=== PATIENT | male | born 1935 ===

== ENCOUNTER 2023-01-16 07:42 | Inpatient (IN) | payer MEDICARE ==
[~2023-01-16] VITALS: Ht 172.7 cm; Wt 57.3 kg
[2023-01-16] MEDS ORDERED: INSU3INS9 SQ (08:14)
[2023-01-16] MEDS ORDERED: TAMS-3 PO (08:14)
[2023-01-16] MEDS ORDERED: FAMO10TA41 PO (08:14)
[2023-01-16] MEDS ORDERED: NA P133E RC (08:14)
[2023-01-16] MEDS ORDERED: DOCU100T2 PO (08:14)
[2023-01-16] MEDS ORDERED: LEVO500T90 PO (08:14)
[2023-01-16] MEDS ORDERED: LOSA25TA27 PO (08:14)
[2023-01-16] MEDS ORDERED: LEVE500T9 PO (08:14)
[2023-01-16] MEDS ORDERED: AMLO10TA4 PO (08:14)
[2023-01-16] MEDS ORDERED: DOCU-160 PO (08:14)
[2023-01-16] MEDS ORDERED: METO25TA6 PO (08:14)
[2023-01-16] MEDS ORDERED: MAG30ORA PO (08:14)
[2023-01-16] MEDS ORDERED: ACET325C7 PO (08:14)
[2023-01-16] MEDS ORDERED: INSU100V39 SQ (08:14)
--- NOTE | 2023-01-16 08:17 | NUR ---
Pt is in bed and in stable condition. Safety measures in place. Will continue to monitor.
--- NOTE | 2023-01-16 08:36 | NUR ---
Pt seen by MD for bedside eval. Safety measures in place. Will continue to monitor.
[2023-01-16 08:52] LABS: HEMATOCRIT 36.1 % (36.7-47.1); MEAN CORPUSCULAR HEMOGLOBIN 32.4 uug (23.8-33.4); MEAN CORPUSCULAR VOLUME 93.3 fL (73.0-96.2); PLATELET COUNT (AUTO) 246 K/uL (152-348)
[2023-01-16 08:57] LABS: CREATININE 1.2 mg/dL (0.6-1.3); POTASSIUM 3.3 mmol/L (3.5-5.1)
[2023-01-16 09:03] LABS: BILIRUBIN,TOTAL 0.5 mg/dL (0.2-1.0)
--- NOTE | 2023-01-16 09:33 | NUR ---
Dr Lee spoke to Dr Beverly re pt's Ct scan.
[2023-01-16] MEDS ORDERED: levETIRAcetam IV 1,000 MG in IV DEXTROSE 5% 100 ML IV ONE (09:45)
[2023-01-16] MEDS ORDERED: HALOPERIDOL LACTATE 5 MG/1 ML VIAL ONE (14:00)
[2023-01-16] MEDS ORDERED: HALOPERIDOL LACTATE 5 MG/1 ML VIAL IM PRN (14:15)
--- NOTE | 2023-01-16 14:15 | NUR ---
Gave report to Jayshree CARLOS).
--- NOTE | 2023-01-16 14:30 | NUR ---
Pt received from ER awake family member with pt, his son Gianfranco who states he doesn't know too much about pt's medical information and informed that Yancy Taylor Cruz pt's is the POA.Pt at times trying to get out of bed no follow direction. Family member has to leave informed Pt will be restrained for safety and fall prevention. Family member understood assisted pt with PO fluids and skin care done after any incontinence. HOB kept elevated at all times due to ICH Pt resting comfortable.
--- NOTE | 2023-01-16 14:48 | NUR ---
Pt transferred to 306 safely and in stable condition. All belongings are with pt. Jayshree (RN) is aware of pt's arrival. Gave paperwork to unit seretary.
[2023-01-16] MEDS ORDERED: ACETAMINOPHEN 325 MG TABLET PO PRN (15:00)
[2023-01-16] MEDS ORDERED: ONDANSETRON 4 MG/2 ML VIAL IV PRN (15:00)
[2023-01-16] MEDS ORDERED: DEXTROSE 50% 50 ML DISP.SYRIN IV PRN (15:00)
[2023-01-16] MEDS ORDERED: ZOLPIDEM 5 MG TABLET PO PRN (15:00)
[2023-01-16] MEDS ORDERED: DOCUSATE SODIUM 100 MG CAPSULE PO PRN (15:00)
[2023-01-16 15:05] VITALS: BP 144/72; TEMP 98.2; O2SAT 96
[2023-01-16] MEDS: POTASSIUM CHLORIDE 50 ML IV SCH ×2 (16:19→17:14)
[2023-01-16] MEDS: IV NS 1000 ML 1,000 ML IV PRN (16:20)
[2023-01-16] MEDS: FAMOTIDINE 20 MG TABLET PO SCH (16:45)
[2023-01-16] MEDS: levETIRAcetam 500 MG TABLET PO SCH (16:45)
[2023-01-16] MEDS: BLOOD SUGAR DIAGNOSTIC 1 EACH STRIP VI SCH ×2 (17:25→21:34)
[2023-01-16] MEDS: INSULIN REGULAR, HUMAN 300 UNIT/3 ML VIAL SQ PRN ×2 (17:27→21:45)
[2023-01-16 20:00] VITALS: BP 150/67; TEMP 97.2; O2SAT 97
[2023-01-16] MEDS: DOCUSATE SODIUM 100 MG CAPSULE PO SCH (21:00)
[2023-01-16] MEDS ORDERED: FAMOTIDINE 20 MG TABLET PO SCH (21:00)
[2023-01-17 04:00] VITALS: BP 160/61; TEMP 98; O2SAT 95
[2023-01-17] MEDS ORDERED: hydrALAZINE HCL 20 MG/1 ML VIAL IV PRN (05:30)
[2023-01-17 05:50] VITALS: BP 139/60; O2SAT 94
[2023-01-17 06:20] VITALS: BP 119/63; O2SAT 95
[2023-01-17] MEDS: BLOOD SUGAR DIAGNOSTIC 1 EACH STRIP VI SCH ×2 (06:38→12:03)
--- NOTE | 2023-01-17 06:46 | NUR ---
Pt resting comfortable then awakes asking for his , Pt is [place] and CG will come to see pt to assist with meals intake. Pt is incontinent pericare and skin care done. Pt tolerates well PO fluids but refused to take any tabs need to be grounded. Bilateral soft restraints remains in place Pt getting out of bed without calling for help. SBP ON THE 160 called [facility] [employer] for orders hydralazine was given SBP improve to 129. Continue monitoring SBP. Glucose level on265 insulin given and snack. This AM GLUCOSE 73 PO juice provided. Pt comfortable continue resting, endorse care to incoming nurse
[2023-01-17 06:54] LABS: HEMATOCRIT 36.4 % (36.7-47.1); MEAN CORPUSCULAR HEMOGLOBIN 33.2 uug (23.8-33.4); MEAN CORPUSCULAR VOLUME 92.9 fL (73.0-96.2); PLATELET COUNT (AUTO) 257 K/uL (152-348)
[2023-01-17 07:19] LABS: CREATININE 1.1 mg/dL (0.6-1.3); MAGNESIUM 1.9 mg/dL (1.8-2.4); PHOSPHOROUS 3.1 mg/dL (2.5-4.9); POTASSIUM 3.2 mmol/L (3.5-5.1)
[2023-01-17 07:59] VITALS: BP 121/61; TEMP 98.2; O2SAT 98
--- NOTE | 2023-01-17 08:00 | NUR ---
AWAKE ALERT BUT CONFUSED X3, REQUIRES CONSTANT SUPERVISION SECONDARY TO FREQUENT FALLS. ON WRIST RESTRAINT RELEASE Q2 HRS. PATIENT RESTING COMFORTABLY NO SS OF PAIN OR DISTRESS. SR ON MONITOR 70-80/MIN
[2023-01-17] MEDS ORDERED: AMLODIPINE 10 MG TABLET PO SCH (09:00)
[2023-01-17] MEDS ORDERED: METOPROLOL TARTRATE 25 MG TABLET PO SCH (09:00)
[2023-01-17] MEDS ORDERED: LOSARTAN POTASSIUM 25 MG TABLET PO SCH (09:00)
[2023-01-17] MEDS: DOCUSATE SODIUM 100 MG CAPSULE PO SCH (09:16)
[2023-01-17] MEDS: FAMOTIDINE 20 MG TABLET PO SCH (09:16)
[2023-01-17] MEDS: levETIRAcetam 500 MG TABLET PO SCH (09:19)
[2023-01-17] MEDS ORDERED: POTASSIUM CHLORIDE 20 MEQ TAB.PRT.SR PO ONE (09:30)
[2023-01-17] MEDS: IV NS 1000 ML 1,000 ML IV PRN (10:24)
--- NOTE | 2023-01-17 12:00 | NUR ---
SEEN BY HOSPITALIST FOR FOLLOW-UP NOTED LABS WITH ORDERS. SEE NOTES
[2023-01-17] MEDS: INSULIN REGULAR, HUMAN 300 UNIT/3 ML VIAL SQ PRN (12:02)
[2023-01-17 12:52] VITALS: BP 130/55; TEMP 97.8; O2SAT 98
[2023-01-17] MEDS ORDERED: LEVE500T9 PO (12:56)
--- NOTE | 2023-01-17 15:20 | NUR ---
FAMILY AT BEDSIDE MADE AWARE OF DISCHARGE ORDER PER SON AND THEY WILL TAKE PATIENT HOME AND NEED AMBULANCE TO GO HOME AND HOME HEALTH PT. [employer]IC MADE AWARE
[2023-01-17 16:12] VITALS: BP 139/66; TEMP 97.8; O2SAT 98
--- NOTE | 2023-01-17 16:48 | NUR ---
DISCHARGED HOME STABLE VIA AMBULANCE. DISCHARGED AND F/U INSTRUCTION GIVEN TO SON AND REGARDING MEDICATIONS AND F/U WITH PCP
[2023-01-17] MEDS ORDERED: TAMSULOSIN HCL 0.4 MG CAP.SR.24H PO SCH (21:00)
== END 2023-01-17 17:07 | disposition home health service (06) | DRG 83 ==
LOC: ER 07:45 → TRANSITION 12:41 → UNDOADMIN 12:41 → DOU3 14:00 → TELE-TD3 14:59
PROVIDERS: ADMIT Nurse Practitioner Acute Care; ATTEND Nurse Practitioner Acute Care
DX: S06.2XAA Diffuse traumatic brain injury with loss of consciousness status unknown, initial encounter (principal); E44.0 Moderate protein-calorie malnutrition; F03.C11 Unspecified dementia, severe, with agitation; R40.2242 Coma scale, best verbal response, confused conversation, at arrival to emergency department; R40.2362 Coma scale, best motor response, obeys commands, at arrival to emergency department; R40.2142 Coma scale, eyes open, spontaneous, at arrival to emergency department; W19.XXXA Unspecified fall, initial encounter; Y92.122 Bedroom in nursing home as the place of occurrence of the external cause; G40.909 Epilepsy, unspecified, not intractable, without status epilepticus; R29.6 Repeated falls; Z95.1 Presence of aortocoronary bypass graft; G93.9 Disorder of brain, unspecified; E83.52 Hypercalcemia; E87.6 Hypokalemia; C80.1 Malignant (primary) neoplasm, unspecified; E88.09 Other disorders of plasma-protein metabolism, not elsewhere classified; K21.9 Gastro-esophageal reflux disease without esophagitis; N40.0 Benign prostatic hyperplasia without lower urinary tract symptoms; Z78.1 Physical restraint status; Z88.0 Allergy status to penicillin; Z79.02 Long term (current) use of antithrombotics/antiplatelets; Z79.82 Long term (current) use of aspirin; Z79.4 Long term (current) use of insulin; E11.9 Type 2 diabetes mellitus without complications
CPT/HCPCS: 36415; 70450; 71045; 72125; 83735; 84100; 84484; 85025; 93005; A4663; G0378; J0360; J1630; J1815; J1953; J3480; J7040